=== PATIENT | female | born 1960 | race Caucasian/White ===

== ENCOUNTER 2017-02-25 17:21 | Emergency (ER) | payer SELFPAY ==
[~2017-02-25] VITALS: Ht 170 cm; Wt 64.5 kg
[2017-02-25 17:29] VITALS: BP 125/88; TEMP 98.8
[2017-02-25] MEDS ORDERED: AMOXICILLIN 8751 TAB PO (19:26)
[2017-02-25 21:18] VITALS: PULSE 59
== END 2017-02-25 21:15 | disposition home or self-care (01) ==
LOC: COL.ER 17:21
DX: S81.852A Open bite, left lower leg, initial encounter (principal); W54.0XXA Bitten by dog, initial encounter; Y92.830 Public park as the place of occurrence of the external cause; Z20.3 Contact with and (suspected) exposure to rabies; Z23 Encounter for immunization